=== PATIENT | female | born 1945 | race American Indian/Alaskan Native ===

== ENCOUNTER 2020-11-05 06:36 | Emergency (ER) | payer MEDICARE, OTHER ==
[2020-11-05 06:44] VITALS: BP 96/47
--- NOTE | 2020-11-05 09:02 | Emergency Department Report ---
ED Lower Extremity HPI - General Chief Complaint: Extremity Injury, Lower Stated Complaint: RT KNEE PAIN Time Seen by Provider: 11/05/20 08:05 Source: patient Mode of arrival: Wheelchair Limitations: Physical Limitation - History of Present Illness Initial Comments: 75-year-old -[place] female presents to the emergency room complaining of pain to her right knee upon walking waking up this morning. Patient states she tried to sit on the chair and failed. Patient states that her pain is severe. She denies hitting her head and no loss of consciousness. Patient does state that she had fallen about 3 AM and was down for about 2 hours when someone came to help her up. Patient reports she has a history of hypertension diabetes and is was told that she needs both her knees replaced. Patient states that she took 2 hydrocodone this morning for her pain. MD Complaint: knee injury -: This morning Injury: Knee: Right Place: home Severity scale (0 -10): 10 Improves With: nothing Worsens With: movement (Extension) Context: fall Associated Symptoms: unable to bear weight Treatments Prior to Arrival: other (To hydrocodone 10 mg apiece) - Related Data Allergies Allergy/AdvReac Type Severity Reaction Status Date / Time Sulfa (Sulfonamide Allergy Unknown Verified 11/05/20 06:45 Antibiotics) coated medications Allergy Unknown Uncoded 11/05/20 06:45 ED Review of Systems ROS: Stated complaint: RT KNEE PAIN Other details as noted in HPI Comment: All other systems reviewed and negative ED Past Medical Hx - Past Medical History Previous Medical History?: Yes Hx Hypertension: Yes Hx Diabetes: Yes - Surgical History Past Surgical History?: Yes Additional Surgical History: R arm rotated cuff, both knees, both feet sx - Social History Smoking Status: Current Every Day Smoker ED Physical Exam - General Limitations: Physical Limitation General appearance: alert, in distress - Head Head exam: Present: atraumatic, normocephalic - Eye Eye exam: Present: normal appearance - ENT ENT exam: Present: mucous membranes moist, normal external ear exam - Neck Neck exam: Present: normal inspection, full ROM. Absent: tenderness - Respiratory Respiratory exam: Absent: accessory muscle use - Cardiovascular Cardiovascular Exam: Present: regular rate - Expanded Lower Extremity Exam Right Knee exam: Present: tenderness. Absent: swelling, abrasion, effusion, full knee extension Lower Leg exam: Present: normal inspection. Absent: tenderness, swelling, abrasion Ankle exam: Present: normal inspection, full ROM Foot/Toe exam: Present: normal inspection, full ROM Neuro vascular tendon exam: Present: no vascular compromise - Back Exam Back exam: Present: normal inspection - Neurological Exam Neurological exam: Present: alert, oriented X3 - Psychiatric Psychiatric exam: Present: normal affect, normal mood - Skin Skin exam: Present: warm, dry, intact, normal color. Absent: rash ED Course Vital Signs 11/05/20 06:42 Temperature 99.0 F Pulse Rate 54 L Respiratory 14 Rate Blood Pressure 96/47 O2 Sat by Pulse 100 Oximetry ED Lower Extremity MDM - Radiology Data Radiology results: report reviewed [facility] [address] [place] [address] XRay Report Signed Patient: FAN DEAN MR#: [id number] : 1945 Acct:[id number] Age/Sex: 75 / F ADM Date: 11/05/20 Loc: ED Attending Dr: Ordering Physician: MELVIN CUETO Date of Service: 11/05/20 Procedure(s): XR knee 3V RT Accession Number(s): [id number] cc: MELVIN CUETO Fluoro Time In Minutes: RIGHT KNEE 3 VIEWS INDICATION / CLINICAL INFORMATION: Pain to right knee COMPARISON: None available. FINDINGS: BONES / JOINT(S): No acute fracture or subluxation. Advanced 3 compartmental DJD greatest at the medial and patellofemoral joints. Probable small intra-articular loose bodies. SOFT TISSUES: Moderate effusion. ADDITIONAL FINDINGS: None. Signer Name: Blue Narayan MD Signed: 11/05/2020 8:59 AM Workstation Name: [id number] Transcribed By: ES Dictated By: Blue Narayan MD Electronically Authenticated By: Blue Narayan MD Signed Date/Time: 11/05/20858 DD/ 7 TD/TT: Print Cancel - Medical Decision Making 75-year-old -[place] female presents to the emergency room complaining of pain to her right knee upon walking waking up this morning. Patient states she tried to sit on the chair and failed. Patient states that her pain is severe. She denies hitting her head and no loss of consciousness. Patient does state that she had fallen about 3 AM and was down for about 2 hours when someone came to help her up. Patient reports she has a history of hypertension diabetes and is was told that she needs both her knees replaced. Patient states that she took 2 hydrocodone this morning for her pain. X-ray was ordered and ice has been placed to the knee. Critical care attestation.: If time is entered above; I have spent that time in minutes in the direct care of this critically ill patient, excluding procedure time. 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 There is no fracture or dislocation of your knee. There is an effusion which is like fluid on the knee. I would like for you to follow-up with orthopedic provider for further evaluation. Please wear your knee brace. Continue with your pain medication that she take at home. Referrals: PRIMARY MD LUCERO [Primary Care Provider] - 3-5 Days BELLA DURAN MD [Staff Physician] - 3-5 Days
== END 2020-11-05 10:20 | disposition home or self-care (01) ==
LOC: ED 06:36
DX: M17.11 Unilateral primary osteoarthritis, right knee (principal); I10 Essential (primary) hypertension; E11.9 Type 2 diabetes mellitus without complications; F17.200 Nicotine dependence, unspecified, uncomplicated; Z79.899 Other long term (current) drug therapy; Z88.8 Allergy status to other drugs, medicaments and biological substances; Z88.2 Allergy status to sulfonamides; Z98.890 Other specified postprocedural states
CPT/HCPCS: 99283

== ENCOUNTER 2021-06-28 06:29 | Day surgery (SDC) | payer MEDICARE ==
--- NOTE | 2021-06-08 08:25 | Short Stay Summary ---
Short Stay Documentation Date of service: 06/08/21 Narrative H&P: Patient presents today for cardiac cath due to abnormal stress test and for surgical clearance - History Principal diagnosis: abnormal stress/surgical clearance Past Medical History: diabetes, GERD, hypertension, hyperlipidemia Past Surgical History: No surgical history Social history: smoking - Allergies and Medications Current Medications: Allergies Sulfa (Sulfonamide Antibiotics) Allergy (Verified 11/05/20 06:45) Unknown coated medications Allergy (Uncoded 11/05/20 06:45) Unknown - Physical exam General appearance: no acute distress Integumentary: no rash, no growths, no abnormal pigmentation Lungs: Clear to auscultation, Normal air movement Heart: Regular rate, Normal S1, Normal S2 Gastrointestinal: normoactive bowel sounds Extremities: no ischemia, pulses intact Neurological: Normal speech - Brief post op/procedure progress note Date of procedure: 06/08/21 Pre-op diagnosis: Abnormal stress Anesthesia: local Estimated blood loss: minimal - Disposition Condition at discharge: Good Short Stay Discharge Plan Follow up with: PRIMARY CARE [Primary Care Provider] - 7 Days
[2021-06-28] MEDS ORDERED: ASPIRIN 81 MG TAB CHEW PO SCH ×2 (07:00→10:00)
[2021-06-28 07:39] LABS: Basophils # (Auto) 0.1 K/mm3 (0.0-0.1); Basophils % (Auto) 1.5 % (0.0-1.8); Eosinophils # (Auto) 0.1 K/mm3 (0.0-0.4); Eosinophils % (Auto) 2.9 % (0.0-4.3); Hematocrit 35.6 % (30.3-42.9); Hemoglobin 12.2 gm/dl (10.1-14.3); Lymphocytes # (Auto) 1.4 K/mm3 (1.2-5.4); Lymphocytes % (Auto) 28.4 % (13.4-35.0); Mean Corpuscular HGB Conc 34 % (30-34); Mean Corpuscular Volume 84 fl (79-97); Monocytes # (Auto) 0.6 K/mm3 (0.0-0.8); Monocytes % (Auto) 12.2 % (0.0-7.3); Platelet Count 306 K/mm3 (140-440); Red Blood Count 4.23 M/mm3 (3.65-5.03); Red Cell Distribution Width 16.4 % (13.2-15.2)
[2021-06-28 07:48] LABS: INR 0.93 (0.87-1.13)
[2021-06-28 07:52] LABS: BUN/Creatinine Ratio 22; Blood Urea Nitrogen 13 mg/dL (7-17); Calcium 9.9 mg/dL (8.4-10.2); Hemolysis Index 2
[2021-06-28] MEDS ORDERED: HEPARIN/NS 5000 UNIT/500ML 1,000 ML IR ONE (08:03)
[2021-06-28] MEDS ORDERED: HEPARIN 10,000 UNITS/10 ML VIAL ONE (08:04)
[2021-06-28] MEDS ORDERED: NITROGLYCERIN SYRINGE 3 ML ONE (08:04)
[2021-06-28] MEDS ORDERED: VERAPAMIL 5 MG/2 ML INJ ONE (08:04)
[2021-06-28] MEDS ORDERED: ASPIRIN 81 MG TAB CHEW ONE (08:11)
[2021-06-28] MEDS: fentaNYL 100 MCG/2 ML INJ ONE ×2 (08:29→09:14)
[2021-06-28] MEDS: SODIUM CHLORIDE 0.9% 500 ML 500 ML IV SCH ×2 (08:30→08:31)
[2021-06-28] MEDS: MIDAZOLAM 2 MG/2 ML INJ ONE ×2 (08:30→09:14)
[2021-06-28] MEDS: LIDOCAINE (2%) 20 MG/1 ML VIAL 20 ML MDV INFILTRATI ONE ×2 (08:31→09:18)
[2021-06-28] MEDS ORDERED: ATROPINE 0.1% (1 MG/10 ML) CARDIAC SYRINGE ONE (09:07)
--- NOTE | 2021-06-28 09:57 | Cardiac Catherization Report ---
DATE OF SERVICE: 06/28/2021 CARDIAC CATHETERIZATION REPORT NDICATIONS: A 75-year-old female with history of hypertension, diabetes mellitus, hyperlipidemia, is scheduled for a knee replacement and was noted to have abnormal stress nuclear imaging last year. For preoperative evaluation, the patient is scheduled for cardiac catheterization for definitive diagnosis and treatment. The patient is aware of the procedure, potential complications, and alternatives of therapy available. DESCRIPTION OF PROCEDURE: The patient was brought to the catheterization laboratory in a fasting condition. The patient was evaluated for moderate sedation and received IV Versed and fentanyl. She was felt to be an appropriate candidate for moderate sedation. Subsequently, she was prepared in standard fashion. Sterile drapes were applied. Local anesthesia was given in the right wrist area and right radial artery puncture was made using 21-gauge arterial puncture needle. Subsequently, 5-Cymro slender sheath was introduced. The patient received 5 mg of intra-arterial verapamil and 3000 units of intravenous heparin. Using 5-Cymro multipurpose catheter, left coronary angiography was performed in multiple views followed by angiography of the right coronary artery and also left ventriculogram was performed in MEDINA projection using hand injection. Subsequently, catheter and sheath were removed and good hemostasis was achieved with application of radial band. The patient was transferred to the room in stable condition. During the procedure, the patient was monitored with pulse oximetry, hemodynamic monitoring and EKG monitoring continuously. The patient's moderate sedation started at 9:14 a.m. and ended at 9:26 a.m. At the end of the procedure, the patient was breathing normally, communicating normally with no focal deficits. Following findings were noted. HEMODYNAMICS: 1. Opening aortic pressure 147/53. Left ventricular pressure 147/26. No gradient across the aortic valve. Estimated ejection fraction 55%. 2. Left ventriculogram done in MEDINA projection showed normal sized left ventricle with normal contractility. End-diastolic and end-systolic volumes are normal. End-diastolic pressure is elevated up to 26 mmHg. Mitral regurgitation was not evaluated because of limited amount of dye injected. 3. Right coronary artery arises normally from right coronary cusp. This is very large dominant vessel supplying the entire septum and also curving around the apex. Angiographically smooth and normal. 4. Left coronary artery arises normally from left coronary cusp. The left main long smooth without any significant disease. LAD is relatively small vessel, not reaching the apex. LAD and its branches and circumflex artery, which is a nondominant vessel and its branch are angiographically smooth and normal. FINAL IMPRESSION: 1. Normal-sized left ventricle with normal contractility, with elevated end diastolic pressure of 26 mmHg. 2. Essentially normal coronary anatomy angiographically. 3. Procedure was uncomplicated. No untoward complications were noted. 4. The patient will be continued on risk factor modification. 5. The patient is "cleared" for her knee replacement. Findings were explained to the patient. She understands. TID: [id number] RECEIPT: [id number] SYLVIA/LEONARD GILES
[2021-06-28] MEDS ORDERED: ASPIRIN 325 MG TAB PO SCH (10:00)
--- NOTE | 2021-06-28 10:27 | Electrocardiograph Report ---
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 Borderline ST depression, diffuse leads No previous ECG available for comparison Electronically Signed On 06-28-2021 10:26:51 EST by Phong Patel
--- NOTE | 2021-06-28 12:16 | Short Stay Summary ---
Short Stay Documentation Date of service: 06/28/21 - History H&P: obtained from office Past Medical History: diabetes, GERD, hypertension, hyperlipidemia Past Surgical History: No surgical history Social history: smoking - Allergies and Medications Current Medications: Allergies Sulfa (Sulfonamide Antibiotics) Allergy (Intermediate, Verified 06/28/21 07:37) Swelling codeine Adverse Reaction (Verified 06/28/21 07:37) Nausea coated medications Allergy (Intermediate, Uncoded 06/28/21 07:37) Hives Home Medications Medication Instructions Recorded Confirmed Last Taken Type Aspirin [Aspirin BABY CHEW TAB] 81 mg PO DAILY 06/28/21 06/28/21 06/27/21 History 81 mg Ergocalciferol (Vitamin D2) 50,000 unit PO QWEEK 06/28/21 06/28/21 06/27/21 His tory [Drisdol] 1 cap HYDROcodone/APAP 10-325 [[place] 1 tab PO BID 06/28/21 06/28/21 06/27/21 History 10-325 mg TAB] 1 tab Januvia 50 mg PO DAILY 06/28/21 06/28/21 06/28/21 04:00 History Losartan [Cozaar] 50 mg PO DAILY 06/28/21 06/28/21 06/27/21 History 50 mg gemfibroziL [Lopid] 600 mg PO BID 06/28/21 06/28/21 06/27/21 History 600 mg hydrALAZINE [Apresoline TAB] 25 mg PO TID 06/28/21 06/28/21 06/27/21 History 25 mg hydroCHLOROthiazide [HCTZ] 25 mg PO DAILY 06/28/21 06/28/21 06/27/21 History 25 mg Active Medications Aspirin (Aspirin 81 Mg Tab Chew) 324 mg PO ONCE@0700 YAEL Stop: 06/28/21 15:00 Last Admin: 06/28/21 08:19 Dose: 324 mg Sodium Chloride (Nacl 0.9% 500 Ml) 500 mls @ 50 mls/hr IV DIRECT YAEL Stop: 06/28/21 17:59 Last Admin: 06/28/21 08:31 Dose: 200 mls - Physical exam Integumentary: other (dressing clean dry and intact) Heart: Regular rate, Normal S1, Normal S2 Extremities: no ischemia, pulses intact - Brief post op/procedure progress note Date of procedure: 06/28/21 Pre-op diagnosis: abnormal stress/preop clearance Post-op diagnosis: other (normal coronaries) Anesthesia: local Estimated blood loss: minimal - Disposition Condition at discharge: Good Disposition: 01 HOME / SELF CARE / HOMELESS Short Stay Discharge Plan Activity: advance as tolerated Diet: low fat, low cholesterol, low salt Wound: keep clean and dry, per your surgeon's advice Follow up with: PRIMARY CARE, [Referring] - 7 Days Forms: BuckyCath PCI D/C Instructions
[2021-06-28 13:07] VITALS: BP 121/58
== END 2021-06-28 13:44 | disposition home or self-care (01) ==
LOC: CATHLABREC 06:29
PROVIDERS: ATTEND Internal Medicine
DX: R94.39 Abnormal result of other cardiovascular function study (principal); E78.5 Hyperlipidemia, unspecified; I10 Essential (primary) hypertension; M19.90 Unspecified osteoarthritis, unspecified site; F17.210 Nicotine dependence, cigarettes, uncomplicated; F41.9 Anxiety disorder, unspecified; K21.9 Gastro-esophageal reflux disease without esophagitis; Z98.890 Other specified postprocedural states; Z88.5 Allergy status to narcotic agent; Z88.2 Allergy status to sulfonamides; Z79.899 Other long term (current) drug therapy; Z79.82 Long term (current) use of aspirin; Z90.49 Acquired absence of other specified parts of digestive tract; Z83.3 Family history of diabetes mellitus; Z80.8 Family history of malignant neoplasm of other organs or systems
CPT/HCPCS: 36415; 80048; 82962; 85025; 85610; 85730; 93005; 93010; 93458; 99156; C1894; J1644; J1815; J2250; J3010; J3490; J7040; J0461; Q9967